=== PATIENT | male | born 2000 | race African-American/Black ===

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

== ENCOUNTER 2020-12-06 10:55 | Emergency (ER) | payer SELFPAY ==
[2020-12-06 11:18] VITALS: BP 140/75; PULSE 84; RESP 16; TEMP 35.8; O2SAT 100
--- NOTE | 2020-12-06 11:40 | ED.WOUNDLAC ---
HPI - Wound/Laceration General Chief Complaint: Wound/Laceration Stated Complaint: boils Time Seen by Provider: 12/06/20 11:28 Source: patient Mode of arrival: ambulatory Limitations: no limitations History of Present Illness HPI narrative: This is a 20-year-old male that presents the emergency department for abscess x3 days. Reports an abscess to the right buttock. Reports history of similar occurrences. Does report spontaneous drainage. Denies fever. Related Data Allergies Allergy/AdvReac Type Severity Reaction Status Date / Time No Known Allergies Allergy Verified 12/06/20 11:29 Review of Systems Review of Systems: Narrative: CONSTITUTIONAL: Denies fever SKIN: Reports abscess All systems reviewed & are unremarkable except as noted in HPI and below PMFSH Past Medical History Medical History (Updated 12/06/20 @ 13:02 by Stephanie Palumbo PA-C) Gastroenteritis Pyelonephritis Surgical History Surgical History No significant past surgical history Social History Social History Smoking status: Never smoker Gender identity (if verbalized by the patient): Male Exam Narrative: Exam Narrative: GENERAL: Well-appearing, well-nourished, and in no acute distress. HEAD: Normocephalic, atraumatic. EYES: EOMI. EXTREMITIES: Normal range of motion. No edema. SKIN: Warm, dry, no rash. Right buttock with 4cm area of edema with central fluctuance, spontaneously draining blood and pus NEURO: No focal deficits. Alert and oriented x3. PSYCH: Normal mood and affect Course Vital Signs Vital signs: Vital Signs Temperature 96.4 F L 12/06/20 11:18 Pulse Rate 84 12/06/20 11:18 Respiratory Rate 16 12/06/20 11:18 Blood Pressure 140/75 12/06/20 11:18 Pulse Oximetry 100 12/06/20 11:18 Temperature 96.4 F L 12/06/20 11:18 Pulse Rate 84 12/06/20 11:18 Respiratory Rate 16 12/06/20 11:18 Blood Pressure 140/75 12/06/20 11:18 Pulse Oximetry 100 12/06/20 11:18 Procedures Abscess I/D other: Date of Incision: 04/12/21 Time of Incision: 13:00 Side (if applicable): right Local Anesthetic: lidocaine 1% and with epi Amount of anesthesia used (mL): 2 Technique: incised with #11 blade Packing used?: none I&D Results: Pus and Blood MDM - Wound/Laceration MDM Narrative Medical decision making narrative: Patient presents the emergency department for abscess to the right buttock. He is afebrile and nontoxic-appearing. Did have some spontaneous drainage, I performed an I&D to allow for further drainage of the area. Patient was educated on wound care. Will be started on oral antibiotic. He is to follow-up with primary care doctor. He was given warnings to return to the ER Critical Care Time Critical Care Time Critical Care Time: No Discharge Plan Discharge Clinical Impression: Abscess Patient Disposition: Home, Self-Care Condition: Stable Instructions: Antibiotic Form, Abscess (ED) Additional Instructions: Return if symptoms worsen or concerns: any increase in redness, swelling, pain, or fever over 101 Take antibiotics as directed. Clean wound with mild soapy water. Apply antibiotic ointment and clean dressing at least three times daily. Warm compresses 3 times a day for 30 minutes each Follow up with primary care in the next 2-3 days for re-evaluation Prescriptions: New doxycycline hyclate 100 mg capsule 100 mg PO BID 7 Days Qty: 14 RF: 0 No Action ibuprofen 400 mg tablet 400 mg PO TID PRN (Reason: fever or pain) 10 Days Qty: 30 RF: 0 acetaminophen [Tylenol] 325 mg capsule 325 mg PO ONCE 7 Days Qty: 30 RF: 0 Follow-up/Referrals: Lucas Aranda MD [Primary Care Provider] - 3 Days
[2020-12-06] MEDS: LIDO 1%/EPINEPHRINE 1:100,000 20 ML VIAL INFILTRATE (13:09)
[2020-12-06 13:20] VITALS: BP 126/72; PULSE 67; RESP 18; O2SAT 99
== END 2020-12-06 13:20 | disposition home or self-care (01) ==
LOC: ANHED 13:10
PROVIDERS: Emergency Provider Emergency Medicine; PCP Emergency Medicine
DX: L02.31 Cutaneous abscess of buttock (principal)
CPT/HCPCS: 10060; 99283